=== PATIENT | female | born 1975 | race Caucasian/White ===

== ENCOUNTER 2017-03-19 20:23 | Emergency (ER) | payer MEDICAID, OTHER, SELFPAY ==
[~2017-03-19] VITALS: Ht 167.6 cm; Wt 87.5 kg
[2017-03-19 20:25] VITALS: BP 137/90
[2017-03-19] MEDS ORDERED: SODIUM CHLORIDE 0.9% 1,000ML IVBOLUS ONE (21:00)
[2017-03-19] MEDS ORDERED: DIPHENHYDRAMINE 50 MG/ML, 1ML ONE (21:58)
[2017-03-19] MEDS ORDERED: DEXAMETHASONE 4 MG/ML, 5ML ONE (21:58)
[2017-03-19] MEDS ORDERED: METOCLOPRAMIDE 5 MG/ML, 2ML ONE (21:59)
[2017-03-19] MEDS ORDERED: KETOROLAC 30 MG/1 ML ONE (21:59)
[2017-03-19] MEDS ORDERED: KETOROLAC 30 MG/1 ML IVPush ONE (22:00)
[2017-03-19] MEDS ORDERED: DIPHENHYDRAMINE 50 MG/ML, 1ML IVPush ONE (22:00)
[2017-03-19] MEDS ORDERED: DEXAMETHASONE 4 MG/ML, 1ML IVPush ONE (22:00)
[2017-03-19] MEDS ORDERED: METOCLOPRAMIDE 5 MG/ML, 2ML IVPush ONE (22:00)
[2017-03-19] MEDS ORDERED: DEXAMETHASONE 4 MG/ML, 1ML ONE (22:07)
== END 2017-03-20 00:13 | disposition home or self-care (01) ==
LOC: ED 22:46
DX: G43.909 Migraine, unspecified, not intractable, without status migrainosus (principal); G43.009 Migraine without aura, not intractable, without status migrainosus; F17.210 Nicotine dependence, cigarettes, uncomplicated
CPT/HCPCS: 96361; 96374; 96375; 99284; J1100; J1200; J1885; J2765; J7030